=== PATIENT | female | born 1980 | race Asian ===

== ENCOUNTER 2018-01-29 12:07 | Emergency (ER) | payer OTHER ==
[2018-01-29 12:35] LABS: BASOPHIL (%) 0.6 % (0-1); BASOPHIL COUNT 0.1 K/uL (0-0.1); EOSINOPHIL COUNT 0.2 K/uL (0-0.3); HEMATOCRIT 41.7 % (36.0-46.0); HEMOGLOBIN 14.4 G/DL (11.9-15.5); IMMATURE GRANULOCYTE (%) 0.7 % (0.0-0.7); LYMPHOCYTE (%) 16.7 % (15-42); LYMPHOCYTE COUNT 2.6 K/uL (1.0-2.8); MCHC 34.5 G/DL (30.0-36.0); MCV 89.9 FL (83-99); MONOCYTE (%) 4.7 % (3-12); MONOCYTE COUNT 0.7 K/uL (0-0.8); NEUTROPHIL (%) 76.3 % (45-76); NEUTROPHIL COUNT 11.9 K/uL (1.8-6.4); PLATELET COUNT 475 K/uL (156-360); RBC DIS.WIDTH-CV 12.2 % (11.8-14.6); RBC DIS.WIDTH-SD 40.2 % (39-53); RED BLOOD COUNT 4.64 M/uL (3.80-5.20); WHITE BLOOD COUNT 15.6 K/uL (4.1-10.2)
[2018-01-29 13:00] LABS: AMYLASE 66 IU/L (1-118); CHLORIDE 99 mEq/L (99-109); POTASSIUM 4.1 mEq/L (3.7-5.4); SODIUM 132 mEq/L (136-147)
[2018-01-29 13:01] LABS: QUANTITATIVE HCG < 4.0 MIU/ML
[2018-01-29 13:03] LABS: GLUCOSE 511 mg/dL (70-99)
[2018-01-29 13:05] LABS: SERUM ETHYL ALCOHOL < 10 mg/dL
[2018-01-29 13:06] LABS: CREATININE 0.8 mg/dL (0.6-1.3); GFR ESTIMATE (CALCULATED) > 59 mL/min/; UREA NITROGEN (BUN) 8 mg/dL (9-23)
[2018-01-29 13:09] LABS: LIPASE 32 U/L (1.0-51.0)
[2018-01-29 15:12] LABS: APPEARANCE CLEAR ((CLEAR)); BILIRUBIN NEGATIVE; BLOOD NEGATIVE; COLOR STRAW ((YELLOW)); GLUCOSE (STRIP) >=500; KETONES NEGATIVE; LEUKOCYTES NEGATIVE; NITRITE NEGATIVE; PROTEIN (STRIP) NEGATIVE; SPECIFIC GRAVITY 1.038 (1.000-1.030); UCUL ADDED? NO; UROBILINOGEN 0.2 MG/DL (0.2-1.0)
[2018-01-29] MEDS ORDERED: PERCOCET 5/31 TABLET PO (15:12)
[2018-01-29 15:22] LABS: AMPHETAMINE NEGATIVE (500 ng/mL); BARBITURATES NEGATIVE (200 ng/mL); BENZODIAZEPINES NEGATIVE (150 ng/mL); BUPRENORPHINE NEGATIVE (10 ng/mL); COCAINE NEGATIVE (150 ng/mL); METHADONE NEGATIVE (200 ng/mL); METHAMPHETAMINE NEGATIVE (500 ng/mL); OPIATES (MORPHINE) PRESUMPTIVE POSITIVE (100 ng/mL); OXYCODONE NEGATIVE (100 ng/mL); PHENCYCLIDINE NEGATIVE (25 ng/mL); PROPOXYPHENE NEGATIVE (300 ng/mL); THC CANNABINOIDS PRESUMPTIVE POSITIVE (50 ng/mL); TRICYCLIC ANTIDEPRESSANTS NEGATIVE (300 ng/mL)
== END 2018-01-29 15:40 | disposition home or self-care (01) ==
LOC: TRA 12:07
PROVIDERS: Emergency Medicine
DX: S32.019A Unspecified fracture of first lumbar vertebra, initial encounter for closed fracture (principal); S16.1XXA Strain of muscle, fascia and tendon at neck level, initial encounter; V49.9XXA Car occupant (driver) (passenger) injured in unspecified traffic accident, initial encounter; Y92.410 Unspecified street and highway as the place of occurrence of the external cause; J44.9 Chronic obstructive pulmonary disease, unspecified; E11.65 Type 2 diabetes mellitus with hyperglycemia; Z87.891 Personal history of nicotine dependence; Z98.890 Other specified postprocedural states; Z88.0 Allergy status to penicillin
CPT/HCPCS: 70450; 71045; 72070; 72100; 72125; 80048; 81003; 82010; 82150; 82948; 83690; 84702; 84999; 85025; 86850; 86900; 86901; 99281; 99285; G0480; J2270; J7120